=== PATIENT | male | born 1990 | race Asian ===

== ENCOUNTER 2018-10-26 10:47 | Outpatient (CLI) | payer OTHER ==
--- NOTE | 2018-10-26 11:37 | SLEEP CARE CONSULTATION ---
Information from patient questionnaire entered by Candy Rodriguez. I have reviewed and concur with the information entered by Candy Rodriguez. This document represents the service I personally performed and the decisions made by me, Abilio Andersen MD, [facility]. History of Present Illness Reason for Visit: New patient Chief Complaint: reports: Snoring, Observed pauses in breathing, Frequent awakenings at night, Other (SINUSES CLOSED) Duration of Symptoms: 2 YEARS Usual bedtime: 10:00PM-11:00PM Time it takes to fall asleep: GREATER THAN 1 HR Snores at night: Yes Observed to quit breathing while asleep: Yes Sleeps alone due to snoring: Yes Number of times waking at night: 2 Reasons for waking at night: reports: Snoring, Gasping for air Toss, Turn, or Twitch while sleeping: Yes Recalls having dreams: No Feels refreshed in the morning: No Morning headache: No Sleepy or fatigued during the day: Yes Ever fallen asleep while driving: No Takes day naps: No Dreams during day naps: No Prior sleep studies: No Additional HPI information: I had the pleasure of seeing Mr. Buckner today regarding the possibility of him having a sleep disorder. As you know, he is a 28 year old gentleman who complains of loud snore, observed apneas, frequent awakenings, unrefreshed sleep, and excessive daytime sleepiness for the past 2 years. He has awakened occasionally because of his own snoring, choking, and having to gasp for air. He usually does not have a morning headache. During the day he complains of feeling sleepy and fatigued. His score on [place] Sleepiness Scale is 8 out of 24. He fell asleep once while driving but no accident. 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 Patient is and lives in [place]. Have you smoked in the past 12 months: No Alcohol use: No Caffeine use: Yes Caffeine amount and frequency: 4 Family History Family history of sleep disordered breathing: No Allergies and Home Medications Known drug allergies: No Home medication list reviewed: Yes Review of Systems Cardiovascular: denies: high blood pressure, palpitations, chest pain, irregular heart rate or pulse, leg or foot swelling, have to sleep sitting up, other Respiratory: denies: shortness of breath, wheeze, sputum production, chronic cough, other Gastrointestinal: denies: heartburn, difficulty swallowing, nausea, vomitting, diarrhea, abdominal pain, other Urinary: denies: incontinence, frequency, urgency, impotence, other Neurological: denies: headaches, seizure, head trauma, disorientation, speech dysfunction, gait or balance problems, fainting or unconsciousness, other Psychiatric: denies: Attention Deficit Hyperactivity, anxiety, depression, mood disorder, claustrophobia, other Ear/Nose/Throat: reports: nasal congestion, sinus problems, wisdom teeth removed Endocrine: denies: thyroid disease, history of goiter, sluggishness, too hot or cold, excessive thirst, increased appetite, increased urination, unexplained weakness, other Musculoskeletal: denies: joint pain, neck pain, back pain, joint swelling, mu scle pain or cramping, mobility problems, other Immunologic: denies: sneezing, rash, itching, allergies to food or environment, other Physical Exam Height: 5 ft 9 in Weight (kg): 87.815 kg Body Mass Index: 28.5 BMI Classification: Overweight HEENT: No craniofacial malformation Nostrils: patent to airflow Turbinates: swollen Septum: midline Mouth and throat: normal Soft palate: long Hard palate: normal Uvula: normal Uvula visualization: 50% Mallampati Class II Tongue: enlarged in size with teeth garrison on lateral edges Tonsils: small Chin and jaw: normal size and position Neck: normal w/o lymphadenopathy or thyromegaly Heart: regular rate and rhythm Lungs: clear bilaterally Abdomen: soft, non-tender Extremities: no edema or clubbing Neurologic: intact, no focal deficits Impression and Plan IMPRESSION: 1. Obstructive Sleep Apnea-Hypopnea Syndrome, as suggested by history of loud and irregular snoring, observed cessation of breath while asleep, frequent awakenings during the night, unrefreshed sleep, nocturnal choking, cognitive impairment, and daytime hypersomnolence. Narrow oropharynx is a common predisposing factor for obstructive sleep apnea-hypopnea syndrome. Pathophysiology of sleep-disordered breathing was discussed. I recommend proceeding to polysomnography to confirm the diagnosis and to assess severity. If he has significant sleep disordered breathing, a manual CPAP titration study will also be performed to find the optimal treatment pressure. I informed the patient of what the sleep studies involve and after some discussion, he agreed to proceed. Plan: 1. Schedule polysomnography and return in 1 to 2 weeks after the study to discuss result and initiate therapy. 2. Avoid long distance driving or when feeling sleepy. 3. Avoid alcohol, sedative and muscle relaxant around bedtime. 4. Attempt to lose weight. I spent 100% of this 15 minute visit face to face with the patient with greater than 50% of this was spent time counseling the patient and coordination of care.
== END 2018-10-26 10:48 | disposition home or self-care (01) ==
LOC: SC 10:47
PROVIDERS: ATTEND Internal Medicine Pulmonary Disease
DX: R06.83 Snoring (principal); R06.81 Apnea, not elsewhere classified; G47.8 Other sleep disorders; R41.89 Other symptoms and signs involving cognitive functions and awareness; G47.10 Hypersomnia, unspecified
CPT/HCPCS: 99203; 99212

== ENCOUNTER 2018-10-28 19:17 | Outpatient (CLI) | payer OTHER | END 2018-10-28 19:18 | disposition home or self-care (01) | LOC: SC 19:17 | PROVIDERS: ATTEND Internal Medicine Pulmonary Disease | DX: R06.83 Snoring (principal) | CPT/HCPCS: 95810 ==

== ENCOUNTER 2018-11-02 09:46 | Outpatient (CLI) | payer OTHER ==
--- NOTE | 2018-11-02 10:40 | SLEEP CARE CONSULTATION ---
Information from patient questionnaire entered by Candy Rodriguez. I have reviewed and concur with the information entered by Candy Rodriguez. This document represents the service I personally performed and the decisions made by me, Abilio Andersen MD, [facility]. History of Present Illness Initial [place] Sleepiness Scale score: 8 Current [place] Sleepiness Scale score: 3 Additional HPI information: Mr. Buckner returned for follow up of the sleep study he had a few nights ago. The polysomnography showed that the patient had normal sleep efficiency. The sleep architecture was normal as well. Respiratory monitoring showed no significant sleep disordered breathing (AHI = 4.5) or hypoxia (lacho oxygen saturation of 81% but only 0.4% to the total sleep time was spent with oxygen saturation below 90%). The respiratory events occurred almost exclusively during supine REM sleep (supine AHI = 5.1; non-supine = 0.00). Snore was light to moderate in intensity. There was no significant periodic leg movement of sleep. Cardiac rhythm was normal sinus rhythm without significant arrhythmia. No abnormal behavior (parasomnia) observed during the night. Allergies and Home Medications Home medication list reviewed: Yes Review of Systems Review of systems same as previous: Yes Impression and Plan IMPRESSION: 1. Primary Snore (ICD-10 R06.83), light to moderate, but no significant sleep disordered breathing except when the patient slept supine. The patient is recommended to avoid sleeping supine. Treatment for snore includes oral appliance therapy and upper airway surgery. The patient complains of nasal congestion. PLAN: 1. See an ENT for chronic nasal congestion. 2. Avoid sleeping supine. I described to him the tennis ball method. 3. Repeat the in-laboratory polysomnography if the patient becomes more symptomatic. If performed, he will be instructed to only sleep on his back. 4. Return for follow up on as needed basis. This visit is time-based and I spent 15 minutes with the patient and more than 50% of the time was spent counseling the patient. I spent 100% of this [] minute visit face to face with the patient with greater than 50% of this was spent time counseling the patient and coordination of care.
== END 2018-11-02 09:47 | disposition home or self-care (01) ==
LOC: SC 09:46
PROVIDERS: ATTEND Internal Medicine Pulmonary Disease
DX: R06.83 Snoring (principal)
CPT/HCPCS: 99212; 99213

== ENCOUNTER 2019-03-29 08:54 | Outpatient (CLI) | payer OTHER ==
[2019-03-29 10:23] VITALS: BP 100/60
--- NOTE | 2019-03-29 10:23 | SLEEP CARE CONSULTATION ---
Information from patient questionnaire entered by Candy Rodriguez. I have reviewed and concur with the information entered by Candy Rodriguez. This document represents the service I personally performed and the decisions made by me, Leatha Brady, RN, MSN, NUTRITION COUNSELOR. History of Present Illness Reason for Visit: Other (Wants to retest, 6 month) Chief Complaint: reports: Unrefreshed sleep, Snoring, Excessive daytime sleepiness (compensates with coffee ), Fatigue, Other (Saw an ENT and studies completed and informed his antatomy showed prone to snore. A surgery may be helpful but ENT advised a sleep study first for re-evaluation. no change in weight noted by patient. ) Duration of Symptoms: 2-3 years Usual bedtime: 9pm Time it takes to fall asleep: 30 minutes Snores at night: Yes (very loud per spouse ) Observed to quit breathing while asleep: Yes Sleeps alone due to snoring: Yes (about 2 years ago due to disruption of spouse sleep) Number of times waking at night: 2-3 Reasons for waking at night: reports: Snoring, Gasping for air (sometimes ). denies: Choking, Pain, Bathroom Toss, Turn, or Twitch while sleeping: Yes Recalls having dreams: No Usually gets out of bed at: 4-5 am Feels refreshed in the morning: No Morning headache: No Sleepy or fatigued during the day: Yes Ever fallen asleep while driving: No Takes day naps: No Dreams during day naps: Yes (after work twice a week and sleeps for 3-4 hours or whole night ) Prior sleep studies: Yes Year and Where: 2018 [facility] - Parasomnia Symptoms Ever been unable to move upon waking from sleep: No Walks in sleep: No Talks in sleep: No Ever acted out dreams in sleep: No Ever felt weak in the knees when startled or emotional: No Bothered by creepy, crawly, restless sensations in legs: No Problems with memory or concentration: No Subjective Initial [place] Sleepiness Scale score: 8 Current [place] Sleepiness Scale score: 9 Past Medical History Past Medical History: denies: Hypertension, Dysphagia, Claustrophobia, Congestive Heart Failure, Diabetes, Stroke, Arthritis, Coronary Heart Disease, Insulin resistance, Gout, Arrythmia, Hypothyroidism, Fibromyalgia, Anemia, Anxiety, Impotence, Asthma, Depression, Emphysema, Mood disorder, GERD, Attention deficit, Other Social History 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 Patient is and lives in [place]. Have you smoked in the past 12 months: No Alcohol use: No Caffeine use: Yes Caffeine amount and frequency: 5-6 8 ounce cups a day Family History Family history of sleep disordered breathing: Yes Family Hx Sleep Apnea: Father: Snoring Allergies and Home Medications Known drug allergies: Yes Home medication list reviewed: No Review of Systems Review of systems same as previous: Yes (continues to have chronic nasal congestion and sinus congestion) Physical Exam Blood Pressure: 100/60 Heart Rate: 75 O2 Saturation: 98 Height: 5 ft 9 in ( ) Weight: 202 lb (with fatigues and boots ) Body Mass Index: 29.8 BMI Classification: Overweight Neck circumference: 16 HEENT: No craniofacial malformation Nostrils: partially obstructed Turbinates: swollen Septum: midline Mouth and throat: narrow oropharynx Soft palate: long Hard palate: normal Uvula: long Uvula visualization: 25% Mallampati Class III Tongue: enlarged in size with teeth garrison on lateral edges Tonsils: small Chin and jaw: Overjet Neck: normal w/o lymphadenopathy or thyromegaly Heart: regular rate and rhythm Lungs: clear bilaterally Abdomen: soft Extremities: no edema or clubbing Impression and Plan 1. Suspected Obstructive Sleep Apnea-Hypopnea Syndrome, patient had elevated AHI in supine position only when last tested October 2018. Since then he has seen the ENT for his snoring and nasal congestion as advised by Dr. Andersen. The ENT advised another sleep study for further evaluation before proceeding with nasal surgery to reduce snoring. Current patient symptoms include history of loud and irregular snoring, observed cessation of breath while asleep, gasping or choking in sleep, frequent awakening during the night, unrefreshed sleep, and excessive daytime sleepiness. Narrow oropharynx and obesity are common predisposing factors for obstructive sleep apnea-hypopnea syndrome.His overbite can also increase his risk for sleep apnea. I recommend proceeding to polysomnography in supine position for re-evaluation to see if treatment indicated. If the patient has significant sleep disordered breathing, a manual CPAP titration study will also be performed to find the optimal treatment pressure. I informed the patient of what the sleep studies involve and after some discussion, obtained agreement to proceed. The pathophysiology of obstructive sleep apnea-hypopnea syndrome was discussed with the patient and health risks of cardiovascular and cerebrovascular disease if not treated. [facility] brochure for obstructive sleep apnea-hypopnea syndrome reviewed. Risks of drowsy driving discussed in detail and patient advised to avoid long distance driving and to wool puller at the first sign of drowsiness. Patient reports fatigue in morning but not drowsy. Otherwise, he is advised to car pool is sleepiness symptoms worsen. Patient agreed to plan. [facility] drowsy driving brochure given. * Schedule polysomnography in supine position., * Avoid long distance driving or driving when feeling sleepy. * Avoid alcohol, sedative and muscle relaxant around bedtime. * Attempt to lose weight. * Review instructions provided by trained office staff on how to prepare for the sleep study. * Return for follow-up after sleep study completed. I spent 100% of this visit face to face with the patient with greater than 50% of this was spent time counseling the patient and coordination of care.
== END 2019-03-29 08:55 | disposition home or self-care (01) ==
LOC: SC 08:54
PROVIDERS: ATTEND Nurse Practitioner Family
DX: R06.83 Snoring (principal); R06.81 Apnea, not elsewhere classified; G47.8 Other sleep disorders; G47.10 Hypersomnia, unspecified; E66.3 Overweight; Z68.29 Body mass index [BMI] 29.0-29.9, adult
CPT/HCPCS: 99212; 99214

== ENCOUNTER 2019-04-04 11:47 | Emergency (ER) | payer OTHER ==
[2019-04-04 12:06] VITALS: BP 140/77
--- NOTE | 2019-04-04 12:40 | ED Physician Documentation ---
PD HPI LOWER EXT INJURY - Stated complaint Stated Complaint: LT FOOT PX - Chief complaint Chief Complaint: Trauma Ext - History obtained from History obtained from: Patient - History of Present Illness PD HPI LOW EXT INJURY LOCATION: Left (About 5 days ago he was doing a new workout and developed gradual onset left foot pain laterally and on the underside. He said he had a similar episode a couple of years ago that resolved without specific intervention.) Review of Systems Constitutional: denies: Fever, Chills Cardiac: reports: Reviewed and negative Respiratory: reports: Reviewed and negative PD PAST MEDICAL HISTORY - Present Medications Home Medications: Ambulatory Orders Medication Instructions Recorded Confirmed Ibuprofen [Motrin] 800 mg PO Q8H PRN #30 tablet 04/04/19 - Allergies Allergies/Adverse Reactions: Allergies Allergy/AdvReac Type Severity Reaction Status Date / Time No Known Drug Allergies Allergy Verified 04/04/19 12:03 PD ED PE NORMAL - Vitals Vital signs reviewed: Yes - General General: Alert and oriented X 3, No acute distress - Extremities Extremities: Other (Mildly tender over the left ATFL and the dorsal proximal foot. No deformity. No limited range of motion but inversion is painful. Achilles is nontender with normal function and there is no calf pain or bony tenderness about the ankle.) - Neuro Neuro: Alert and oriented X 3, Normal speech Results - Vitals Vitals: Vital Signs - 24 hr 04/04/19 12:03 Temperature 36.7 C Heart Rate 75 Respiratory 18 Rate Blood Pressure 140/77 H O2 Saturation 99 Oxygen O2 Source Room air - Rads (name of study) 3v L foot Radiology: EMP read contemporaneously (normal) PD MEDICAL DECISION MAKING - ED course ED course: 29-year-old gentleman with an overuse injury of the left foot consistent with a tendinitis. Conservative care was advised. Departure - Departure Disposition: Home, Self Care Clinical Impression: Left ankle tendinitis Condition: Good Record reviewed to determine appropriate education?: Yes Instructions: ED Sprain Ankle W X Ray Prescriptions: Ibuprofen [Motrin] 800 mg PO Q8H PRN #30 tablet PRN Reason: PAIN &/OR FEVER Comments: [place], return for new or worsening symptoms. Your blood pressure was elevated today on check into the emergency department. This does not mean that you have hypertension, it is a common phenomenon to come to the emergency department and have elevated blood pressure. I recommend that you see your primary care physician within the week to have it rechecked when you are feeling better.
--- NOTE | 2019-04-04 12:54 | XRAY Report ---
Reason: Trauma Procedure Date: 04/04/2019 Accession Number: [id number] / [id number] Procedure: XR - Foot 3 View LT CPT Code: Final Report FULL RESULT: EXAM: LEFT FOOT RADIOGRAPHY EXAM DATE: 04/04/2019 12:14 PM HISTORY: Trauma COMPARISON: None. TECHNIQUE: AP, lateral and oblique, 3 views . FINDINGS: No fracture, lytic or sclerotic bone lesion. Unremarkable joint alignment. No arthritis. Unremarkable soft tissues. IMPRESSION: Normal foot radiography. [facility]
== END 2019-04-04 13:01 | disposition home or self-care (01) ==
LOC: ED 11:47
DX: M70.872 Other soft tissue disorders related to use, overuse and pressure, left ankle and foot (principal); R03.0 Elevated blood-pressure reading, without diagnosis of hypertension
CPT/HCPCS: 99283

== ENCOUNTER 2019-04-26 09:41 | Outpatient (CLI) | payer OTHER ==
[2019-04-26 11:03] VITALS: BP 90/70
--- NOTE | 2019-04-26 11:03 | SLEEP CARE CONSULTATION ---
Information from patient questionnaire entered by Purnima Marion. I have reviewed and concur with the information entered by Purnima Marion. This document represents the service I personally performed and the decisions made by me, Leatha Brady, RN, MSN, PSYCHOLOGICAL OPERATIONS OFFICER. History of Present Illness Initial [place] Sleepiness Scale score: 8 Current [place] Sleepiness Scale score: 2 Additional HPI information: CHARAN CORONADO returns with partner for follow up and results of the recently performed polysomnography. I explained the pathophysiology behind obstructive sleep apnea. We then spent quite a bit of time discussing different treatment options. For mild obstructiv e sleep apnea, surgery and oral appliance are alternatives to nasal CPAP therapy but in moderate or severe cases, nasal CPAP is the most effective and reliable treatment. Because apnea is primarily in supine position, then positional management therapy could be effective. Methods discussed such as positioning with pillows, using a T-shirt with tennis balls in the back, and shown commercial products that have a pillow format on back to prevent supine sleep. I reviewed the impact of weight changes on sleep apnea and strongly recommended losing weight. After some discussion, the patient opted to discuss his treatment options with his ENT. He does not know if he wants to try the oral appliance, CPAP or surgery to reduce apnea. He had questions about CPAP. I explained how CPAP machine works with sample devices RespirTrewCaps Dreamstation and ResBlueCava [id number] and what to expect when using the machine. Using CPAP every night in order to get used to it was emphasized. Patient advised to put CPAP mask on before getting into bed so as not to fall asleep without CPAP. To assist acclimation to CPAP use, it could also be used for a short time during day while reading or watching TV. The patient was instructed to call the CPAP supplier to discuss any mechanical problem that may occur. If the mask given is uncomfortable or is difficult to keep on through the night even with adjustment, contact the CPAP supplier as many will replace with another mask style if notified before 30 days. If snoring or perceives is not getting enough air or too much air from the machine, notify this office. [facility] patient education PAP tips and Non Pap treatment pamphlets reviewed and given to patient. Patient counseled not drink alcohol less than 4 hours before bedtime as it can increase snoring and apnea. Patient does not drink alcohol. Patient was cautioned about risks of drowsy driving until sleepiness symptoms resolve. Patient denies drowsy driving. He has been sleeping better with better sleep habits. Sleep Study - Results Polysomnography/Home Sleep Study results: The quality of the study is good. The patient had normal sleep efficiency. The sleep architecture was normal as well. Respiratory monitoring showed mild obstructive sleep apnea-hypopnea (AHI = 6.7) associated with oxyhemoglobin desaturation and mild hypoxia (lacho oxygen saturation of 86%) but not sleep fragmentation. The respiratory events occurred mainly during REM sleep. The patient only slept supine during this study (supine AHI = 6.7; non-supine = 0.00). Snore was loud in intensity. There was no significant periodic leg movement of sleep. Cardiac rhythm was normal sinus rhythm without significant arrhythmia. No abnormal behavior (parasomnia) observed during the night. Allergies and Home Medications Known drug allergies: No Home medication list reviewed: No (no meds) Review of Systems Review of systems same as previous: Yes Physical Exam Blood Pressure: 90/70 Heart Rate: 64 O2 Saturation: 99 Height: 5 ft 9 in Weight: 202 lb Body Mass Index: 29.8 BMI Classification: Overweight Impression and Plan 1. Obstructive Sleep Apnea-Hypopnea Syndrome, mild , with lowest oxygen saturation of 86%. Possibly this is the cause of the patients symptoms of unrefreshed sleep, and excessive daytime sleepiness. He continues to need to take naps. As mentioned above, the patient will discuss his treatment options with his ENT. The ENT discussed nasal surgery if no apnea. Thus patient would like to consider all treatment options and contact this office. He is considering oral appliance or CPAP. Thus PAP treatment tips pamphlet given. If he does decide to use CPAP he would like to try autoCPAP and not have manual titration. Because the apnea is more severe supine, I instructed to avoid sleeping supine using pillow positioning until able to treat his apnea. * Patient will contact his office with treatment choice. * Attempt to lose weight. * Avoid alcohol consumption near bedtime. * Avoid supine sleep until using CPAP or oral appliance. * The patient is again cautioned about driving until sleepiness completely resolves. * Return is determined by treatment choice. * Addendum: 14:45 04/28/19 Patient called back 04/27/19 and informed this office he would like to start CPAP and would like to use [employer]. Thus I will make a DWO prescription to start treatment. Patient is to contact this office once he receives his CPAP so a follow up can be scheduled. Time Spent with Patient (minutes): 30 minutes I spent 100% of this visit face to face with the patient with greater than 50% of this was spent time counseling the patient and coordination of care.
== END 2019-04-26 09:42 | disposition home or self-care (01) ==
LOC: SC 09:41
PROVIDERS: ATTEND Nurse Practitioner Family
DX: G47.33 Obstructive sleep apnea (adult) (pediatric) (principal)
CPT/HCPCS: 99212; 99214

== ENCOUNTER 2019-07-08 16:49 | Outpatient (CLI) | payer OTHER ==
--- NOTE | 2019-07-08 15:22 | SLEEP CARE CONSULTATION ---
Information from patient questionnaire entered by Candy Rodriguez. I have reviewed and concur with the information entered by Candy Rodriguez. This document represents the service I personally performed and the decisions made by me, Leatha Brady, RN, MSN, [employer]. History of Present Illness Service Date and Time: 07/08/2019 1500 Previous diagnosis: Mild, Obstructive Sleep Apnea-Hypopnea Syndrome AHI: 6.7 Reason for follow up: first compliance Equipment type: CPAP Equipment obtained from: [employer] Mask style: Nasal Backup mask available: No (keep current mask when replaced as a spare) Last cushion change: last week CPAP Compliance Data - Data Reviewed with Patient Average duration of nightly device use: 5h 58m Compliance rate %: 80 Current pressure setting (cmH2O): 4-15 Humidity settin Heated hose settin Average residual AHI: 3.5 Average large leak: 1m 2s Subjective Patient concerns: reports: nasal congestion (reduced with higher humidity - (from allergies)). denies: aerophagia, mask discomfort, air blowing in eyes, mask leak noise, condensation in mask/hose, dry mouth, nose, throat, epistaxis, other Observed to snore while using device: No Current pressure setting perceived as: comfortable On therapy, patient: reports: sleeping better, awakening more refreshed, being more awake and alert during the day, more rested overall, other. denies: drowsiness while driving Initial [place] Sleepiness Scale score: 8 Allergies and Home Medications Home medication list reviewed: No (no changes) Review of Systems Review of systems same as previous: Yes Physical Exam Height: 5 ft 9 in Weight: 189 lb (home weight) Body Mass Index: 27.8 BMI Classification: Overweight Impression and Plan 1. Obstructive Sleep Apnea-Hypopnea Syndrome, mild, with good treatment compliance and good apnea control. On CPAP therapy, the patient has better sleep quality and is more rested overall. He is pleased with benefit of treatment. He is getting supplies as needed. I will change his CPAP pressure range to 6 - [id number] as his 90% pressure is 6.6cmH20 but noted to have frequent pressure peaks as high as [id number]. He is advised to contact this office if pressure change is uncomfortable. I informed him he could use the ramp for initiation of treatment if needed for comfort. In addition, I reviewed the effect of significant weight change to his apnea risk and CPAP pressure requirements. Patient's apnea severity and rationale for treatment to reduce apnea, improve sleep quality and reduce cardiovascular and cerebrovascular events was reviewed. * Change CPAP pressure to 6-10 cmH2O * Notify me if snoring with mask or feeling that the pressure is too much or too little * Attempt to lose some weight * Call this office if any problems using CPAP * Return for follow up in 3 months , or sooner if concerns arise Visit Type: Telehealth Video (to reduce risk of COVID 19 exposure , the patient has agreed to this visit and to bill insurance.) Video Type: Diaphonics Patient Location: Home Location of Provider: Home Patient agrees and consents to this telehealth visit type: Yes Time Spent with Patient (minutes): 11 Provider Statement: I spent 100% of the Telehealth Video Call with the patient with greater than 50% spent counseling the patient and coordination of care.
== END 2019-07-08 16:50 | disposition home or self-care (01) ==
LOC: SC 16:49
PROVIDERS: ATTEND Nurse Practitioner Family
DX: G47.33 Obstructive sleep apnea (adult) (pediatric) (principal); E66.3 Overweight; Z68.27 Body mass index [BMI] 27.0-27.9, adult

== ENCOUNTER 2019-11-01 08:17 | Outpatient (CLI) | payer OTHER ==
[2019-11-01 09:35] VITALS: BP 102/70
--- NOTE | 2019-11-01 09:35 | SLEEP CARE CONSULTATION ---
Information from patient questionnaire entered by Purnima Marion. I have reviewed and concur with the information entered by Purnima Marion. This document represents the service I personally performed and the decisions made by me, Leatha Brady, RN, MSN, BAR HELPER. History of Present Illness Service Date and Time: 11/01/2019816 Previous diagnosis: Mild, Obstructive Sleep Apnea-Hypopnea Syndrome AHI: 6.7 (in 2020) Reason for follow up: three month Equipment type: CPAP Equipment obtained from: [employer] (having problems getting supplies lately - told not due) Mask style: Nasal Last cushion change: last week Prior sleep studies: Yes Year and Where: 2018 - [facility], [place] Type of Sleep Study: Polysomnography Sleep Study - Results Prior sleep studies: Yes Year and Where: 2018 [facility] CPAP Compliance Data - Data Reviewed with Patient Average duration of nightly device use: 6.1 Compliance rate %: 81.1 (90 days) Current pressure setting (cmH2O): 6-10 Humidity settin Heated hose settin Average residual AHI: 3.0 (median 6.5cmH20/ <90% 7.5 cmH20. ) Average large leak: 1 min 20 sec Subjective Missed days of use due to: reports: illness, other (fell asleep without CPAP a couple of times on couch ) Patient concerns: reports: aerophagia (intermittent 1 -2 times a week wakes bloated relieved with a burp ), nasal congestion (when ill with cold or allergies affecting CPAP use ). denies: mask discomfort, air blowing in eyes, mask leak noise, condensation in mask/hose, dry mouth, nose, throat, epistaxis, other Observed to snore while using device: No Current pressure setting perceived as: comfortable On therapy, patient: reports: sleeping better, awakening more refreshed, being more awake and alert during the day, more rested overall. denies: drowsiness while driving Initial [place] Sleepiness Scale score: 8 (in 2019) Current [place] Sleepiness Scale score: 10 Allergies and Home Medications Known drug allergies: No Home medication list reviewed: No (no medications) Review of Systems Review of systems same as previous: Yes Physical Exam Blood Pressure: 102/70 Cuff size: long Heart Rate: 46 (running 5 miles a day for 4 months with lower pulse of 40s to 50s) O2 Saturation: 99 Height: 5 ft 9 in Weight: 185 lb 6.4 oz (lost weight) Weight change since last visit: 14 pounds Body Mass Index: 27.3 BMI Classification: Overweight Impression and Plan 1. Obstructive Sleep Apnea-Hypopnea Syndrome, mild, with good treatment compliance and good apnea control. On CPAP therapy, the patient has better sleep quality and is more rested overall. To reduce symptoms of aerophagia, the CPAP pressure will be reduced to 5-8 cmH2O. Patient advised to contact me if this does not reduce symptoms or if pressure change uncomfortable. He has lost weight and discussed how significant weight loss can affect apnea and pressure. BMI chart reviewed and patient planning about 4 more pounds of weight loss which this pressure range should accomodate. His BMI is 27 overweight. Health risks associated with obesity reviewed and praised for weight loss and increase in activity to improve health. For supply concerns, patient to look at supply replacement schedule and call [employer] for update as needed. The number will be given at check out. He was sent a bulk bag with all sizes of nose cushions plus his filters. So advised to specify cushion size. He uses large cushion of [employer] - mask specific prescription written. To improve use of CPAP when nasal congestion, I discussed measure to reduce nasal congestion. Nasal congestion can be reduced with increasing the CPAP humidity as shown on sample device. The heated hose can be adjusted higher if condensation with higher humidity setting. At this time I suggested to change humidity to 3 and heated hose to 1 for summer weather. Saline nasal spray can also be used prior to CPAP to clear nasal secretions and wash off any nasal allergens to facilitate nasal breathing. In addition, a steamy shower before bed will often assist nasal drainage. Verbal instructions given on how to change humidity and heated hose settings with rationale explaining why to change. A bedtime alarm on phone can assist reduction of falling asleep on couch while relaxing. Patient's apnea severity and rationale for treatment to reduce apnea, improve sleep quality and reduce cardiovascular and cerebrovascular events was reviewed. Since patient has more severe apnea in supine position, patient advised to avoid supine sleep with pillow positioning if unable to use CPAP while ill or if without electricity to reduce apnea risk. * * Change auto CPAP pressure to 5-8 cmH2O * Implement methods to reduce nasal congestion and reduce time without CPAP. * Notify me if snoring with mask or feeling that the pressure is too much or too little * Continue to lose some weight * Call this office if any problems using CPAP * Return for follow up in 6 months , or sooner if concerns arise Visit Type: In Office Time Spent with Patient (minutes): 33 Provider Statement: I spent 100% of the Face to Face Visit with the patient with greater than 50% spent counseling the patient and coordination of care.
== END 2019-11-01 08:18 | disposition home or self-care (01) ==
LOC: SC 08:17
PROVIDERS: ATTEND Nurse Practitioner Family
DX: G47.33 Obstructive sleep apnea (adult) (pediatric) (principal); E66.3 Overweight; Z68.27 Body mass index [BMI] 27.0-27.9, adult
CPT/HCPCS: 99212; 99214

== ENCOUNTER 2020-06-02 07:36 | Outpatient (CLI) | payer OTHER ==
--- NOTE | 2020-06-02 08:20 | SLEEP CARE CONSULTATION ---
Information from patient questionnaire entered by Jade Pena. I have reviewed and concur with the information entered by Jade Pena. This document represents the service I personally performed and the decisions made by , Anna Marie Hackett ARNP. History of Present Illness Service Date and Time: 06/02/2020 0736 Previous diagnosis: Mild, Obstructive Sleep Apnea-Hypopnea Syndrome AHI: 6.7 (in 2019) Reason for follow up: other (7-month followup) Equipment type: CPAP Equipment obtained from: [employer] (getting supplies as needed) Mask style: Nasal (over the nose) Backup mask available: Yes (other mask) Last cushion change: this morning Prior sleep studies: Yes Year and Where: 2018 [facility] additional information: CHARAN CORONADO was diagnosed to have mild, AHI 6.7, obstructive sleep apnea- hypopnea syndrome and returned today for CPAP therapy 7 month follow-up. CPAP Compliance Data - Data Reviewed with Patient Average duration of nightly device use: 6 h 4 min Compliance rate %: 65.0 Current pressure setting (cmH2O): 6-10 Humidity settin Heated hose settin Average residual AHI: 3.0 Average large leak: 3 min 13 sec Subjective Missed days of use due to: reports: mask issues, travel Patient concerns: reports: mask discomfort (from condensation on face), mask leak noise, condensation in mask/hose, nasal congestion, dry mouth, nose, throat (couple times, dry nose), other (snore while using device). denies: aerophagia, air blowing in eyes, epistaxis Observed to snore while using device: Yes (not as bad but still snoring) Current pressure setting perceived as: comfortable On therapy, patient: reports: sleeping better, awakening more refreshed, being more awake and alert during the day, more rested overall. denies: drowsiness while driving Initial [place] Sleepiness Scale score: 8 (in 2019) Current [place] Sleepiness Scale score: 2 Allergies and Home Medications Drug allergies reviewed: Yes (NKDA) Home medication list reviewed: Yes (no new medications) Review of Systems Review of systems same as previous: Yes (no changes) Physical Exam Heart Rate: 58 O2 Saturation: 99 Height: 5 ft 9 in Weight: 186 lb Body Mass Index: 27.4 BMI Classification: Overweight Impression and Plan 1. Obstructive Sleep Apnea-Hypopnea Syndrome, mild, with fair treatment compliance and good apnea control. On CPAP therapy, the patient has better sleep quality and is more rested overall. He has been told he still snores while using the mask but it is better. To resolve snore, the CPAP pressure will be changed to 7-11 cmH20. Patient advised to contact this office if pressure change uncomfortable or if pressure change does not resolve snore. He has been getting some condensation in the hose and mask which causes him to take mask off early. He has to blow his nose and is not sure if he is having nasal congestion or if it is the water from the mask. His humidity is set at 5 and heated hose at 1. I advised him to increase the heated hose to reduce condensation. He has also been having some nasal dryness. Nasal dryness can be reduced with increasing the CPAP humidity and the heated hose can be increased if condensation. In addition, I gave the patient a few samples of Emiliano Ease nasal cream to be used 4 times a day for 7-10 days and then as needed. Patient's apnea severity and rationale for treatment to reduce apnea, improve sleep quality and reduce cardiovascular and cerebrovascular events was reviewed. * Change auto CPAP pressure to 7-11 cmH2O * Notify me if snoring with mask or feeling that the pressure is too much or too little * Attempt to lose weight * Call this office if any problems using CPAP * Return for follow up in 1-2 months, or sooner if concerns arise Counseling Topics: Spare mask, Weight loss health impact Visit Type: In Office Time Spent with Patient (minutes): 24 Provider Statement: I spent 100% of the Face to Face Visit with the patient with greater than 50% spent counseling the patient and coordination of care.
== END 2020-06-02 07:37 | disposition home or self-care (01) ==
LOC: SC 07:36
PROVIDERS: ATTEND Nurse Practitioner Family
DX: G47.33 Obstructive sleep apnea (adult) (pediatric) (principal); E66.3 Overweight; Z68.27 Body mass index [BMI] 27.0-27.9, adult
CPT/HCPCS: 99212; 99213

== ENCOUNTER 2020-07-28 07:52 | Outpatient (CLI) | payer OTHER ==
--- NOTE | 2020-07-28 08:14 | SLEEP CARE CONSULTATION ---
Information from patient questionnaire entered by Purnima Marion. I have reviewed and concur with the information entered by uPrnima Marion. This document represents the service I personally performed and the decisions made by , Anna Marie Hackett ARNP. History of Present Illness Service Date and Time: 07/28/2020 0752 Previous diagnosis: Mild, Obstructive Sleep Apnea-Hypopnea Syndrome AHI: 6.7 (in 2019) Reason for follow up: other (2 month with pressure change) Equipment type: CPAP Equipment obtained from: [employer] (getting supplies as needed) Mask style: Nasal (over the nose) Backup mask available: Yes (other mask) Last cushion change: 1-2 weeks ago Prior sleep studies: Yes Year and Where: 2019 - [facility] additional information: CHARAN CORONADO was diagnosed to have mild, AHI 6.7, obstructive sleep apnea-hyp opnea syndrome and returned today for CPAP therapy 2 month with pressure change follow-up. CPAP Compliance Data - Data Reviewed with Patient Average duration of nightly device use: 5 hr 54 min Compliance rate %: 88.3 (60 days) Current pressure setting (cmH2O): 7-11 Humidity settin Heated hose settin Average residual AHI: 3.2 Average large leak: 38 sec Subjective Missed days of use due to: reports: illness Patient concerns: reports: mask leak noise (just needs adjustment from moving). denies: aerophagia, mask discomfort, air blowing in eyes, condensation in mask/hose, nasal congestion, dry mouth, nose, throat, epistaxis, other Observed to snore while using device: No Current pressure setting perceived as: comfortable On therapy, patient: reports: sleeping better, awakening more refreshed, being more awake and alert during the day, more rested overall. denies: drowsiness while driving Initial [place] Sleepiness Scale score: 8 (in 2019) Current [place] Sleepiness Scale score: 1 Allergies and Home Medications Home medication list reviewed: Yes (no new meds) Review of Systems Review of systems same as previous: Yes (no changes) Physical Exam Heart Rate: 54 O2 Saturation: 98 Height: 5 ft 9 in Weight: 187 lb Body Mass Index: 27.6 BMI Classification: Overweight Impression and Plan 1. Obstructive Sleep Apnea-Hypopnea Syndrome, mild, with good treatment compliance and good apnea control. On CPAP therapy, the patient has better sleep quality and is more rested overall. He has some leak noises that improve with adjustment of his mask. He states this is just from him changing positions during sleep. He is very satisfied with his treatment and intends to continue custodial. He states he is moving to [place] in September and asked about follow up. I advised him to establish with a sleep care center in [place] for follow up next year. He voiced understanding. Patient's apnea severity and rationale for treatment to reduce apnea, improve sleep quality and reduce cardiovascular and cerebrovascular events was reviewed. * Continue auto CPAP pressure at 7-11 cmH2O * Notify me if snoring with mask or feeling that the pressure is too much or too little * Attempt to lose weight * Call this office if any problems using CPAP * Return for follow up in 1 year, or sooner if concerns arise Counseling Topics: Spare mask, Weight loss health impact Visit Type: In Office Time Spent with Patient (minutes): 16 Provider Statement: I spent 100% of the Face to Face Visit with the patient with greater than 50% spent counseling the patient and coordination of care.
== END 2020-07-28 07:53 | disposition home or self-care (01) ==
LOC: SC 07:52
PROVIDERS: ATTEND Nurse Practitioner Family
DX: G47.33 Obstructive sleep apnea (adult) (pediatric) (principal); E66.3 Overweight; Z68.27 Body mass index [BMI] 27.0-27.9, adult
CPT/HCPCS: 99212